=== PATIENT | male | born 1970 ===

== ENCOUNTER → 2022-02-06 11:30 | Outpatient (BNVA) | payer BC, SELFPAY | PROVIDERS: Visit Provider Family Medicine | DX: Z86.39 Personal history of other endocrine, nutritional and metabolic disease (principal); E88.81 Metabolic syndrome and other insulin resistance; R35.1 Nocturia; E78.5 Hyperlipidemia, unspecified | CPT/HCPCS: 80053; 80061; 83036; 84443; 84480; 85025 ==

== ENCOUNTER → 2022-02-07 09:43 | Outpatient (BNVA) | payer BC, SELFPAY | PROVIDERS: Visit Provider Family Medicine | DX: R35.1 Nocturia (principal); E88.81 Metabolic syndrome and other insulin resistance; Z86.39 Personal history of other endocrine, nutritional and metabolic disease; E78.5 Hyperlipidemia, unspecified; E55.9 Vitamin D deficiency, unspecified | CPT/HCPCS: 80053; 80061; 83036; 84153; 84443; 84480; 85025 ==

== ENCOUNTER → 2022-02-08 10:52 | Outpatient (BNVA) | payer BC, SELFPAY | PROVIDERS: Visit Provider Family Medicine | DX: R35.1 Nocturia (principal); E88.81 Metabolic syndrome and other insulin resistance; Z86.39 Personal history of other endocrine, nutritional and metabolic disease; E78.5 Hyperlipidemia, unspecified; E55.9 Vitamin D deficiency, unspecified | CPT/HCPCS: 82306; 84439 ==

== ENCOUNTER 2022-07-12 07:19 | Day surgery (SDC) | payer BC, SELFPAY ==
[2022-07-11 13:27] VITALS: BMI 25.5
[2022-07-12] VITALS (8 sets, daily range): BP systolic 125–146; BP diastolic 78–88; PULSE 70–99; RESP 12–22; TEMP 36.6–36.8; O2SAT 97–100
--- NOTE | 2022-07-12 07:53 | P.HP_ITS ---
Same Day Surgery H&P Indication for Procedure/HPI DATE OF PROCEDURE: July 12, 2022 CHIEF COMPLAINT/INDICATIONFOR SURGICAL PROCEDURE: left inguinal hernia repair PREOP DIAGNOSIS: inguinal hernia PLANNED PROCEDURE: Operation Date: 07/12/22 08:30 Proposed Procedures p lap poss open left inguinal hernia repair 44199,K40.90(Left) - Yuan Traore MD Medications/Allergies* Home Medications Medication Instructions Recorded Confirmed Type lisdexamfetamine 70 mg capsule 70 mg PO DAILY 02/06/22 07/12/22 History (Vyvanse) Allergies/Adverse Reactions Allergy/AdvReac Type Severity Reaction Status Date / Time No Known Allergies Allergy Verified 07/11/22 13:25 Pertinent History/Comorbid Conditions* Medical History (Updated 07/02/22 @ 08:47 by Yuan Traore MD) ADHD Diagnosed in his 20's. Has been on Vyvanse for 10 years. 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
--- NOTE | 2022-07-12 07:55 | P.ANESASSM_ITS ---
Pre-Anesthetic Assessment Height/Weight: Height 1.7 m Weight 73.936 kg Preop Diagnosis: inguinal hernia Operation Date: 07/12/22 08:30 Proposed Procedures p lap poss open left inguinal hernia repair 25287,K40.90(Left) - Yuan Traore MD Familial anesthetic complications: None Was Beta Summer taken within 24 hours: N/A Was Clonidine taken within 24 hours: N/A Last intake: 07/11/22 Social No alcohol and No tobacco Exam alert, oriented x 3, clear to auscultation bilaterally and regular rate & rhythm Airway Submandibular: within normal limits Cervical ROM: within normal limits Mallampati: Class I Dentition: full History/ROS No significant complaints Pulmonary None reported CV/HEM None reported None reported Hepatic None reported GI None reported Metabolic Hyperlipidemia and Thyroid Disease (Hx of hashimota thyroiditis ) Musc/skel None reported Neuropsych None reported ADHD Anesthetic Plan ASA status: 2 Anesthesia: Anesthesia Evaluation and General Other: We discussed risk and benefits of general anesthesia including PONV, sore throat (sometimes severe), corneal abrasion, positioning and peripheral nerve injuries, life threatening allergic reaction, post operative ICU admission requiring prolonged intubation, stroke, heart attack, , and rare incidences of recall. Patient consents to proceed with general anesthesia. Plan multi-modal analgesia and anti emetics. Risk of > 500 ml blood loss (7ml/kg in children): No Medications/Allergies Home Medications Medication Instructions Recorded Confirmed Last Taken Type lisdexamfetamine 70 mg capsule 70 mg PO DAILY 02/06/22 07/12/22 07/11/22 History (Vyvanse) rosuvastatin 10 mg tablet (Crestor) 10 mg PO DAILY #90 tabs 02/06/22 07/12/22 07/11/22 Rx cholecalciferol (vitamin D3) 1,250 50,000 unit PO .WEEKLY 12 weeks 02/12/22 07/12/22 07/11/22 Rx mcg (50,000 unit) capsule (D3-50 #12 caps Cholecalciferol) levothyroxine 100 mcg tablet 100 mcg PO DAILY 90 days #90 tabs 05/14/22 07/12/22 07/12/22 Rx (Synthroid) hydrocodone 5 mg-acetaminophen 325 1 tab PO Q6H PRN pain #20 tabs 07/12/22 Unknown Rx mg tablet Allergies Allergy/AdvReac Type Severity Reaction Status Date / Time No Known Allergies Allergy Verified 07/11/22 13:25 COUNTS INCLUDE 234 BEDS AT THE [facility] Anesthesia Medical History ADHD Diagnosed in his 20's. Has been on Vyvanse for 10 years. Dyslipidemia History of Daniel thyroiditis Surgical History S/P shoulder surgery left Status post exploratory laparotomy Age 31's Status post left inguinal hernia repair (07/12/22) Family History Mother Hypothyroidism Hyperlipidemia Father Hyperlipidemia Social History Smoking and tobacco status: never smoked Alcohol intake: current Alcohol intake frequency: holidays/special occasions only Data Anesthesia Cardiac Studies: No Data to Display
[2022-07-12] MEDS: sodium chloride 0.9% 1,000 ML 30 ML IV (08:02)
[2022-07-12] MEDS: ceFAZolin 2,000 MG in sodium chloride 0.9% (plus) 50 ML 100 MG IV (08:23)
--- NOTE | 2022-07-12 10:12 | SUR.PHASEI ---
1002 PT AWAKES TO VOICE BUT QUICKLY BACK TO SLEEP, GOOD RESP NOTED, MONITOR SR NO ECTOPY, IV TO LT WRIST #20 WITH NS 300ML UP AT KVO RATE PER GRAVITY, ID BRACELET TO RT WRIST , PT ID'D WITH 2 IDENTIFIERS, ABDOMEN SOFT WITH 2 SITES WITH SKIN GLUE AND SUPPORT BRIEFS AND FLUFFS, ALL D/I BILATERAL SCDS ON.
--- NOTE | 2022-07-12 10:34 | SUR.PHASEI ---
1025 DR CRAFT AT BEDSIDE TALKING WITH PT, PT AWAKE ALERT RESPONDS VERBALLY AND APPROPRIATELY, REGULAR ICE PACK TO ABDOMEN, PT ABDOMEN AND SITES UNCHANGED, PT TO OPS BAY 5 WITH BEDSIDE HANDOFF TO NATHALY ALEMAN. PT FAMILY IN ROOM
--- NOTE | 2022-07-12 11:19 | ANE.PACU2 ---
Inpatient post-anesthesia follow up: Airway intact: Yes Vital signs: Temperature 98 F Pulse Rate 73 Respiratory Rate 18 Blood Pressure 126/81 Pulse Oximetry 98 Oxygen Delivery Me thod Room Air Oxygen Flow Rate 8 Fraction of Inspir ed Oxygen Hydration adequate: Yes Nausea and vomiting: No Pain level: 3 Mental status: Baseline
[2022-07-12] MEDS: HYDROcodone-acetaminophen 5-325 mg Tablet 1 TAB PO (11:46)
--- NOTE | 2022-07-12 12:10 | PM.OP ---
Operative Report Date of procedure: July 12, 2022 Pre-op diagnosis: Reducible symptomatic left inguinal hernia Post-op diagnosis: 1. Reducible left indirect inguinal hernia 2. Lipoma of the spermatic cord Procedure done: 1. Laparoscopic total extraperitoneal repair of left indirect inguinal hernia with Surgimax 3D 16 x 10 mesh 2. Excision of lipoma of the spermatic cord Pathology: none sent Surgeon: Yuan Traore Anesthesia: General Condition: stable Disposition: PACU Procedure: The patient was taken to the operating room and intubated under general anesthesia. After IV antibiotic was administered, the abdomen was prepped and draped in a sterile manner. Using a 15 blade, a 1.0 cm transverse incision was made infraumbilically on the left side over the existing scar. Subcutaneous tissue was divided using electrocautery and the anterior rectus sheath divided using an 11 blade. The rectus muscle was retracted laterally and the extraperitoneal space identified. A 11 mm port was placed and 12 mm of pneumoperitoneum was created. A 10 mm 30? scope was introduced and the retrorectus space was opened using the camera up to the pubic symphysis and 5 mm ports were placed in the midline, one 2-fingerbreadths above the pubic symphysis and the other midway between these two ports under direct visualization. Blunt dissection was carried out to open up the tissue in the midline and to the pubic symphysis, which was identified. The dissection was then carried laterally where the iliopubic tract was identified. There was no femoral, obturator or direct hernia noted. The inferior epigastric artery was identified and dissection was carried posterior to it and laterally, the space was opened up to the level of the umbilicus superior to the anterior superior iliac spine. I then proceeded to dissect out the spermatic cord and the indirect hernial sac was reduced . There was also a moderate sized lipoma of the spermatic cord which was excised. 16 x 10cm Surgimax 3D mesh was rolled and introduced through the 10 mm port and rolled laterally and apposed well against the abdominal wall to cover the myopectineal orifice completely. There was small amount of bleeding when the mesh was introduced. 10 Cc of 0.5% Marcaine was infiltrated into the preperitoneal space. The extraperitoneal space was desufflated under direct visualization to ensure no slippage of hernial sac under the mesh. All ports were removed, the anterior rectus fascia at the infraumbilical port closed using figure of eight 0 Vicryl sutures, subcutaneous tissue approximated using 3-0 Vicryl sutures and skin at all three port sites were closed using running subcuticular 4-0 Monocryl sutures and Dermabond. 10 mL of 0.5% Marcaine was infiltrated at the port sites. The patient was stable throughout the procedure.
== END 2022-07-12 12:24 | disposition home or self-care (01) ==
PROVIDERS: PCP Family Medicine; Visit Provider Surgery
PROC: (CPT 49650; principal; 2022-07-12 08:30)
DX: K40.90 Unilateral inguinal hernia, without obstruction or gangrene, not specified as recurrent (principal); D17.6 Benign lipomatous neoplasm of spermatic cord; E78.5 Hyperlipidemia, unspecified; F90.9 Attention-deficit hyperactivity disorder, unspecified type
CPT/HCPCS: 49650; C1781; J1100; J1200; J2250; J2405; J2704; J2710; J3010; J3490; J7030